=== PATIENT | female | born 1980 | race Caucasian/White ===

== ENCOUNTER 2017-06-13 12:58 | Emergency (ER) | payer BC ==
[~2017-06-13] VITALS: Ht 162.6 cm; Wt 77.0 kg
[2017-06-13 18:45] VITALS: BP 163/94
[2017-06-13 18:47] LABS: CLARITY URINE CLEAR (CLEAR); COLOR URINE YELLOW (YELLOW); GLUCOSE URINE 3+ (NEGATIVE); KETONES URINE NEGATIVE (NEGATIVE); LEUKOCYTE ESTERASE URINE NEGATIVE (NEGATIVE); NITRITE URINE NEGATIVE (NEGATIVE); OCCULT BLOOD URINE NEGATIVE (NEGATIVE); PROTEIN URINE NEGATIVE (NEGATIVE); SPECIFIC GRAVITY URINE 1.039 (1.005-1.030); UROBILINOGEN URINE 0.2 E.U./dL (0.2-1.0)
== END 2017-06-13 20:30 | disposition left against medical advice (07) ==
LOC: ER 18:33
DX: A63.0 Anogenital (venereal) warts (principal); F17.210 Nicotine dependence, cigarettes, uncomplicated; Z98.890 Other specified postprocedural states
CPT/HCPCS: 81001; 99283

== ENCOUNTER 2017-07-30 22:31 | Emergency (ER) | payer BC, MEDICAID ==
[~2017-07-30] VITALS: Ht 165.1 cm; Wt 81.6 kg
[2017-07-31 06:51] LABS: CLARITY URINE CLOUDY (CLEAR); COLOR URINE YELLOW (YELLOW); GLUCOSE URINE 3+ (NEGATIVE); KETONES URINE NEGATIVE (NEGATIVE); LEUKOCYTE ESTERASE URINE 2+ (NEGATIVE); NITRITE URINE POSITIVE (NEGATIVE); OCCULT BLOOD URINE 2+ (NEGATIVE); PH URINE 5.5 (4.5-8.0); PROTEIN URINE 1+ (NEGATIVE); SPECIFIC GRAVITY URINE 1.034 (1.005-1.030); UROBILINOGEN URINE 0.2 E.U./dL (0.2-1.0)
[2017-07-31] MEDS ORDERED: HYDROCODONE/ACETAMINOPHEN 5/325MG TABLET PO ONE (07:00)
[2017-07-31 07:06] VITALS: BP 171/109
== END 2017-07-31 07:30 | disposition home or self-care (01) ==
LOC: ER 22:31
DX: N39.0 Urinary tract infection, site not specified (principal); E11.9 Type 2 diabetes mellitus without complications; Z79.4 Long term (current) use of insulin; Z91.14 Patient's other noncompliance with medication regimen; R03.0 Elevated blood-pressure reading, without diagnosis of hypertension; Z98.890 Other specified postprocedural states
CPT/HCPCS: 81001; 81025; 87077; 87086; 87186; 99284; Z7610

== ENCOUNTER 2017-08-02 18:39 | Emergency (ER) | payer MEDICAID ==
[~2017-08-02] VITALS: Ht 165.1 cm; Wt 81.0 kg
[2017-08-03] MEDS ORDERED: SODIUM CHLORIDE 0.9% 1,000 ML IV ONE ×2 (00:36→03:22)
[2017-08-03] MEDS ORDERED: LORAZEPAM 2MG/ML CPJ IV ONE (00:45)
[2017-08-03 01:18] LABS: BASOPHILS % 0.7 % (0.0-2.0); EOSINOPHILS % 0.6 % (0.0-5.0); HEMATOCRIT. 43.6 % (36.0-48.0); HEMOGLOBIN. 15.1 g/dL (12.0-16.0); LYMPHOCYTES % 21.9 % (20.0-50.0); MEAN CORPUSCULAR HEMOGLOBIN 28.5 pg (28.0-32.0); MEAN CORPUSCULAR VOLUME 82.6 fL (81.0-99.0); MEAN PLATELET VOLUME 7.7 fl (7.4-10.4); MONOCYTES % 14.8 % (2.0-8.0); PLATELET 226 x1000/uL (130-400); RED BLOOD CELL COUNT 5.28 mill/uL (4.2-5.4); RED CELL DISTRIBUTION WIDTH 13.8 % (11.6-14.6)
[2017-08-03 01:23] LABS: PROTHROMBIN TIME 10.3 sec (9.4-11.6)
[2017-08-03 01:24] LABS: CHLORIDE 94 mEq/L (98-107)
[2017-08-03 01:32] LABS: CARBON DIOXIDE 28 mEq/L (21-32)
[2017-08-03 01:54] LABS: CLARITY URINE CLEAR (CLEAR); COLOR URINE YELLOW (YELLOW); GLUCOSE URINE 3+ (NEGATIVE); KETONES URINE NEGATIVE (NEGATIVE); LEUKOCYTE ESTERASE URINE NEGATIVE (NEGATIVE); NITRITE URINE NEGATIVE (NEGATIVE); OCCULT BLOOD URINE NEGATIVE (NEGATIVE); PH URINE 5.5 (4.5-8.0); PROTEIN URINE NEGATIVE (NEGATIVE); UROBILINOGEN URINE 0.2 E.U./dL (0.2-1.0)
[2017-08-03] MEDS ORDERED: CEFTRIAXONE 1 G PREMIX 50 ML IV SCH (02:15)
[2017-08-03] MEDS ORDERED: INSULIN REGULAR (HUMULIN R) 300UNITS/3ML SUBCUT SCH (02:15)
[2017-08-03 05:30] VITALS: BP 131/86
== END 2017-08-03 05:42 | disposition home or self-care (01) ==
LOC: ER 20:26
DX: E11.65 Type 2 diabetes mellitus with hyperglycemia (principal); R68.83 Chills (without fever); R11.0 Nausea; F17.200 Nicotine dependence, unspecified, uncomplicated; I10 Essential (primary) hypertension; Z79.4 Long term (current) use of insulin; Z91.14 Patient's other noncompliance with medication regimen
CPT/HCPCS: 36415; 80053; 81001; 81025; 83690; 85025; 85610; 96365; 96372; 96375; 99284; J0696; J1815; J2060; J7030; Z7610